=== PATIENT | male | born 1950 | race African-American/Black ===

== ENCOUNTER 2019-01-12 09:41 | Inpatient (IN) | payer OTHER ==
[~2019-01-12] VITALS: Ht 185.4 cm; Wt 102.1 kg
[2019-01-12] VITALS (7 sets, daily range): BP systolic 128–140; BP diastolic 56–86
[2019-01-12] MEDS ORDERED: Magnesium 1GM/D5W 100ML PREMIX PIGGYBACK IV ONE ×2 (09:42→19:39)
[2019-01-12] MEDS ORDERED: MIDAZOLAM HCL 2 MG/2ML VIAL ONE (10:42)
[2019-01-12] MEDS ORDERED: HEPARIN SODIUM, PORCINE 5000 UNITS/1 ML VIAL ONE (11:23)
[2019-01-12] MEDS ORDERED: HEMOSTATIC MATRIX 10 ML 1 EACH PAD MC ONE (11:23)
[2019-01-12] MEDS ORDERED: CEFAZOLIN 1 GM ONE (11:23)
[2019-01-12] MEDS ORDERED: THROMBIN (BOVINE) 5,000 UNITS VIAL TP ONE (11:23)
[2019-01-12] MEDS ORDERED: GELATIN SPONGE,ABSORBABLE 1 EA SPONGE TP ONE (11:24)
[2019-01-12] MEDS ORDERED: PROPOFOL 100 ML ONE (11:44)
[2019-01-12] MEDS ORDERED: SUCCINYLCHOLINE CHLORIDE 20 MG/ML VIAL ONE (11:44)
[2019-01-12] MEDS ORDERED: ESMOLOL INJ 100 MG/10 ML VIAL IV ONE ×2 (12:42→12:44)
[2019-01-12] MEDS ORDERED: HYDROMORPHONE 1 MG/1 ML DISP.SYRIN ONE (14:34)
[2019-01-12] MEDS ORDERED: FENTANYL PF 100MCG/2ML AMPUL ONE (14:47)
[2019-01-12] MEDS ORDERED: ACETAMINOPHEN 325 MG TABLET PO PRN ×2 (15:00→17:00)
[2019-01-12] MEDS ORDERED: DOCUSATE SODIUM 100 MG CAPSULE PO PRN (15:00)
[2019-01-12] MEDS ORDERED: HYDROCODONE/APAP 5/325MG 1 EACH TABLET PO PRN (16:00)
--- NOTE | 2019-01-12 16:00 | NUR ---
GOVERNMENT PROPERTY INSPECTOR ADMITTING NOTES: Rec'd pt from [facility] [place]. Pt transferred via bed accompanied by . Pt admitted to rm 103, s/p cervical sx by Dr. Miller. Pt noted to have clean, dry & intact dressing w/ Hemovac drain - + sanguineous output. Has L wrist G22, SL flushing well w/ no s/sx of infection/infiltration noted. Pt oriented to room. Safety precaution kept in place w/ bed in lowest & locked pos. Call light placed w/in reach. Notified Dr. Tirado re: admitting the pt, MD to see pt. Clarified w/ Benson [facility] [place] (spoke w/ Alee) re: cervical brace, per RNs, per MD to wear cervical brace at all times while on bed. Carried out orders of Dr. Espinosa re: FIELD MARKETER Dilaudid. Faxed order to pharmacy, confirmed w/ Celestino. Pt seen & examined by Dr. Tirado w/ orders made & carried out. Per , to give Dilaudid 1mg IVP x 1 prior to starting Dilaudid FIELD MARKETER pump. Clarified w/ Dr. Espinosa re: FIELD MARKETER Dilaudid infusion (total dose in 4 hr = 8mg) Pt & VS monitored closely for any changes. Will endorse to PM RN for ANUSHA.
[2019-01-12] MEDS ORDERED: NALOXONE HCL 0.4 MG/ML AMPUL IV PRN (16:30)
[2019-01-12] MEDS ORDERED: HYDROMORPHONE 1 MG/1 ML DISP.SYRIN IV ONE (16:30)
[2019-01-12] MEDS ORDERED: KEY,NONCONTROL,TO KEEP IN PYXI 1 EA MC ONE (16:47)
[2019-01-12] MEDS: DEXAMETHASONE SOD PHOSPHATE 4 MG/ML VIAL IV SCH (16:49)
[2019-01-12] MEDS: METHOCARBAMOL (750MG) 750 MG TABLET PO SCH (16:49)
[2019-01-12] MEDS ORDERED: MAGNESIUM HYDROXIDE 30 ML UDC PO PRN (17:00)
[2019-01-12] MEDS ORDERED: MAG HYDROX/AL HYDROX/SIMETH 30 ML UDC PO PRN (17:00)
[2019-01-12] MEDS ORDERED: ONDANSETRON HCL/PF 4 MG/2 ML VIAL IVP PRN (17:00)
[2019-01-12] MEDS ORDERED: Z GUARD REMEDY 2 OZ OINT TP PRN (17:00)
[2019-01-12] MEDS: HYDROMORPHONE MDV 30 MG in IV NS 0.9% 15 ML, PCA TOTAL VOLUME 1 BAG IV PRN ×3 (17:28)
--- NOTE | 2019-01-12 19:25 | NUR ---
HAND WASHER NOTE PATIENT REPORT BEDSIDE. PATIENT IN BED A/O X4. PATIENT ON DILAUDID SONG WRITER. 28.9 ML. PATIENT REPORTED TO PUSH SONG WRITER PUMP ONE TIME, MACHINE CONFIRMS USE OF 1 PUSH. DAY SHIFT RECORD CLEARED AND DOCUMENTED BY DAYSHIFT WITH SMUTTER ELSE WITNESS. PATIENT ABLE TO VERBALIZE UNDERSTANDING OF USE OF PUMP. PATIENT C/O OF PAIN /10. PATIENT INSTRUCTED ON USE OF INCENTIVE SPIROMETER. PATIENT STATES IS HURTS TO USE, RN INSTRUCTED TO USE IT AFTER PUSHING SONG WRITER TO EASE PAIN. PATIENT DENIES SOB O2 SATURATION 95%. PATIENT HAS HEMOVAC WITH SANGUINOUS DRAINAGE. C COLLAR IN PLACE. IV PATENT AND INTACT NO S/S OF INFECTION OR INFILTRATION. PATIENT DRINKING SOUP NO S/S OF DYSPHAGIA. RN WILL CONTINUE TO MONITOR FOR CHANGES. SAFETY PRECAUTIONS IN PLACE. CALL LIGHT IN HAND.
[2019-01-12] MEDS: CEFAZOLIN 2 GM in IV D5W 100 ML IV SCH (19:38)
[2019-01-12] MEDS: HYDROCODONE/APAP 10/325MG 1 EA TABLET PO PRN (21:10)
--- NOTE | 2019-01-12 21:13 | NUR ---
DOCTOR OF PODIATRY NOTE PATIENT HAVING BREAKTHROUGH PAIN. NORCO 10/325 GIVEN PER MD ORDER. WILL EVALUATE EFFECTIVE AND DETERMINE IF STUDENT DEVELOPMENT SPECIALIST NEEDS TO BE TITRATED UP 0.2 MG PER MD ORDER
[2019-01-12] MEDS ORDERED: ZOLPIDEM TARTRATE 5 MG TABLET PO PRN (22:00)
--- NOTE | 2019-01-12 22:31 | NUR ---
NUCLEAR POWERPLANT SUPERVISOR NOTE PATIENT C/O BURNING SORE THROAT NO FEVER NOTED. PATIENT ASKING FOR MEDICATION TO MANAGE SYMPTOM. MD WILEY OFFICE CALLED NO ANSWER, MESSAGE LEFT. OFFERED PATIENT WARM WATER OR TEA PATIENT REFUSED. EXPLAINED TO PATIENT, PAIN MAY BE RELATED TO INTUBATION DURING SURGERY.
[2019-01-13] VITALS: BP 106/69
[2019-01-13] MEDS: DEXAMETHASONE SOD PHOSPHATE 4 MG/ML VIAL IV SCH ×2 (01:09→08:11)
[2019-01-13] MEDS: METHOCARBAMOL (750MG) 750 MG TABLET PO SCH ×4 (01:09→23:15)
[2019-01-13] MEDS: CEFAZOLIN 2 GM in IV D5W 100 ML IV SCH ×3 (03:47→20:23)
[2019-01-13 04:00] VITALS: BP 110/60
--- NOTE | 2019-01-13 05:00 | NUR ---
SALES AND PRODUCTION MANAGER NOTE DRESSING OVER HEMOVAC BLOODY. DRESSING CHANGED WITH MINOR PRESSURE. NO BLOODY BREAKTHROUGH NOTED. CALL SURGEON VIRGILIO, NO ANSWER LEFT MESSAGE WITH ONCALL.. PATIENT V/S 110/60 HR 88. PATIENT SKIN WARM AND DRY, PATIENT MENTATION NORMAL. RN WILL CONTINUE TO MONITOR. CHARGE NURSE ANAM ZAVALA.
[2019-01-13 06:38] LABS: BASOPHILS % (AUTO) 0.1 % (0.0-2.0); HEMATOCRIT 48 % (39-51); HEMOGLOBIN 16.2 g/dL (13.5-17.5); LYMPHOCYTES # (AUTO) 1.2 /CMM (0.8-4.8); LYMPHOCYTES % (AUTO) 10.2 % (20.0-44.0); MEAN CORPUSCULAR HGB CONC 34 g/dl (31.0-36.0); MEAN CORPUSCULAR VOLUME 93 fL (80-96); MONOCYTES # (AUTO) 0.3 /CMM (0.1-1.30); MONOCYTES % (AUTO) 2.6 % (2.0-12.0); NEUTROPHILS # (AUTO) 9.9 /CMM (1.8-8.9); NEUTROPHILS % (AUTO) 87.1 % (43.0-81.0); PLATELET COUNT (AUTO) 160 /CMM (150-450); RED BLOOD CELL COUNT(AUTO) 5.16 MIL/uL (4.5-6.0); WHITE BLOOD COUNT (AUTO) 11.4 K/uL (4.3-11.0)
[2019-01-13 07:00] LABS: CALCIUM, SERUM 8.5 mg/dL (8.5-10.1); CREATININE 1.1 mg/dL (0.6-1.3); MAGNESIUM 2.2 mg/dL (1.8-2.4); PHOSPHORUS 3.4 mg/dL (2.5-4.9)
[2019-01-13 08:00] VITALS: BP 133/82
[2019-01-13] MEDS: HYDROCODONE/APAP 10/325MG 1 EA TABLET PO PRN (08:11)
[2019-01-13] MEDS ORDERED: ATOR40TA PO (09:27)
[2019-01-13] MEDS ORDERED: DUTA0.5C15 PO (09:27)
[2019-01-13] MEDS ORDERED: LOSA25TA27 PO (09:27)
[2019-01-13] MEDS ORDERED: TAMS-12 PO (09:27)
[2019-01-13] MEDS ORDERED: TRAM50TA2 PO (09:27)
[2019-01-13] MEDS ORDERED: HYDR-3980 PO (09:27)
--- NOTE | 2019-01-13 09:40 | NUR ---
RN NOTE 0715: Received patient A/Ox4. Tolerated room air. On BOSS DYER pump Dilaudid at 0.7mg bolus and BOSS DYER. With c/o 10/18 nexk pain. On C-collar. PIV intact. 0840: Modale given as ordered for breakthrough pain and per patient request. 10/18 neck pain, will continue. 0935: No any significant changes noted at this time. Will continue to monitor. Patient requested to change diet to pureed for now, made MD aware.
[2019-01-13 12:00] VITALS: BP 109/72
--- NOTE | 2019-01-13 14:28 | NUR ---
RN NOTE 1100: S/E by Dr. Heath, said he will be satying and will check again tomorrow. Continue SENIOR EDITOR per MD. 1420: Drained drainage and noted 8mL sanguineous, made MD aware.
[2019-01-13] MEDS: MENTHOL/CETYLPYRD (CEPACOL) 1 LOZ LOZENGE PO PRN ×3 (15:39→23:22)
[2019-01-13 16:00] VITALS: BP 115/68
[2019-01-13] MEDS ORDERED: KEY,NONCONTROL,TO KEEP IN PYXI 1 EA MC ONE (16:01)
[2019-01-13] MEDS: HYDROMORPHONE MDV 30 MG in IV NS 0.9% 15 ML, PCA TOTAL VOLUME 1 BAG IV PRN ×3 (16:25)
--- NOTE | 2019-01-13 18:08 | NUR ---
RN NOTE A/Ox4, no significant changes. On 0.5mg Dilaudid Continuous, titrated lower in am, tolerating pain, 5-7/10 neck pain. Noted with minimal amount of blood on the drainage site. Sanguineous drainage noted on the drainage. Patient requesting room transfer, CN aware, will place to 110 after dinner but patient changed his mind, made CN aware. Informed patient, room will be available still if he changes his mind. Will endorse to next shift.
--- NOTE | 2019-01-13 19:01 | NUR ---
RN OPENING NOTES RECEIVED PATIENT RESTING IN BED, AWAKE, A/OX4, ABLE TO MAKE NEEDS KNOWN. ON 0.5MG DILAUDID SEXER, TOLERATING PAIN, 6/10 NECK PAIN NOTED. MINIMAL AMOUNT OF BLOOD ON THE DRAINAGE SITE, SANGUINEOUS DRAINAGE NOTED. ON ROOM AIR, TOLERATING WELL, NO RESPIRATORY OR CARDIAC DISTRESS NOTED, BREATHING EVEN AND UNLABORED. IV SITE LEFT WRIST #22, FLUSHING AND PATENT, IV ATB RUNNING ORDERED, NO INFILTRATION NOTED. SAFETY MEASURES IN PLACE; BED LOCKED AND IN LOWEST POSITION, SIDE RAILS UP X2, CALL LIGHT WITHIN REACH, HOB ELEVATED. WILL CONT TO MONITOR PT.
[2019-01-13 20:00] VITALS: BP 116/76
[2019-01-14 04:00] VITALS: BP 119/69
[2019-01-14] MEDS: CEFAZOLIN 2 GM in IV D5W 100 ML IV SCH ×2 (04:16→11:26)
[2019-01-14 06:33] LABS: BASOPHILS % (AUTO) 0.2 % (0.0-2.0); EOSINOPHILS % (AUTO) 0.6 % (0.0-6.0); HEMATOCRIT 44 % (39-51); HEMOGLOBIN 14.9 g/dL (13.5-17.5); LYMPHOCYTES # (AUTO) 2.2 /CMM (0.8-4.8); LYMPHOCYTES % (AUTO) 21.6 % (20.0-44.0); MEAN CORPUSCULAR HGB CONC 34 g/dl (31.0-36.0); MEAN CORPUSCULAR VOLUME 93 fL (80-96); MONOCYTES # (AUTO) 0.9 /CMM (0.1-1.30); MONOCYTES % (AUTO) 9.1 % (2.0-12.0); NEUTROPHILS # (AUTO) 6.9 /CMM (1.8-8.9); NEUTROPHILS % (AUTO) 68.5 % (43.0-81.0); PLATELET COUNT (AUTO) 154 /CMM (150-450); RED BLOOD CELL COUNT(AUTO) 4.75 MIL/uL (4.5-6.0)
[2019-01-14] MEDS: HYDROCODONE/APAP 10/325MG 1 EA TABLET PO PRN (06:38)
[2019-01-14 07:00] LABS: CALCIUM, SERUM 9.2 mg/dL (8.5-10.1); CREATININE 1.1 mg/dL (0.6-1.3); MAGNESIUM 1.9 mg/dL (1.8-2.4); PHOSPHORUS 3.3 mg/dL (2.5-4.9)
--- NOTE | 2019-01-14 07:25 | NUR ---
RN CLOSING NOTES PATIENT RESTING IN BED, AWAKE, A/OX4, ABLE TO MAKE NEEDS KNOWN. ON 0.5MG DILAUDID RECOVERER, TOLERATING PAIN, 6/10 NECK PAIN NOTED. MINIMAL AMOUNT OF BLOOD ON THE DRAINAGE SITE, SANGUINEOUS DRAINAGE NOTED. ON ROOM AIR, TOLERATING WELL, NO RESPIRATORY OR CARDIAC DISTRESS NOTED, BREATHING EVEN AND UNLABORED. IV SITE LEFT WRIST #22, FLUSHING AND PATENT, IV ATB RUNNING ORDERED, NO INFILTRATION NOTED. SAFETY MEASURES IN PLACE; BED LOCKED AND IN LOWEST POSITION, SIDE RAILS UP X2, CALL LIGHT WITHIN REACH, HOB ELEVATED. ALL MD ORDERS ATTENDED. ENDORSED TO AM RN FOR ANUSHA.
--- NOTE | 2019-01-14 07:57 | NUR ---
MS KYLE NOTES PATIENT RESTING IN BED, AWAKE, A/OX4, ABLE TO MAKE NEEDS KNOWN. ON 0.5MG DILAUDID CONTROL ROOM TECHNICIAN, ORDERED TOLERATING PAIN, DRESSING ON NECK WITH MINIMAL AMOUNT OF BLOOD ON THE DRAINAGE SITE, SANGUINEOUS DRAINAGE NOTED. ON ROOM AIR, TOLERATING WELL, NO RESPIRATORY OR CARDIAC DISTRESS NOTED, BREATHING EVEN AND UNLABORED. IV SITE LEFT WRIST #22, FLUSHING AND PATENT, , NO INFILTRATION NOTED. SAFETY MEASURES IN PLACE; BED LOCKED AND IN LOWEST POSITION, SIDE RAILS UP X2, CALL LIGHT WITHIN REACH, HOB ELEVATED. ATTENDED. ABLE TO URINATE WELL USING A URINAL, WILL CONT TO MONITOR Addendum: 01/14/19 at 0820 by HANNAH PAREKH RN C\O CORE THROAT CEPACOL GIVEN ORDERED
[2019-01-14 08:00] VITALS: BP 132/79
[2019-01-14] MEDS: METHOCARBAMOL (750MG) 750 MG TABLET PO SCH (08:03)
[2019-01-14] MEDS: MENTHOL/CETYLPYRD (CEPACOL) 1 LOZ LOZENGE PO PRN (08:12)
[2019-01-14 08:18] VITALS: BP 132/79
--- NOTE | 2019-01-14 09:30 | NUR ---
MS RN NOTE SEEN BY KUSUM WILKERSON DNP OK TO DISCHARGE HOME, SEEN PATIENT OK TO CHANGE DRESSING AWARE THAT WAS BLEEDING BEFORE ALSO HEMOVAC REMOVED BY HIM
[2019-01-14] MEDS ORDERED: BACITRACIN ZINC OINT PACKET 1 EA PACKET TP SCH (12:00)
[2019-01-14] MEDS ORDERED: KEY,NONCONTROL,TO KEEP IN PYXI 1 EA MC ONE (13:45)
--- NOTE | 2019-01-14 14:02 | NUR ---
CORN MILLER NOTE DISCHARGE INSTRUCTION DONE , PX GIVEN EMPLANED HOW TO TAKE NEW AND HOME MEDS ORDERED, AND POSSIBLE SIDE EFFECTS, INSTRUCTED TO F]U WITH PRIMARY CARE DOCTOR AND DR WILEY ,KEEP NECK COLLAR TILL SEE DR WILEY , NO BELONGING AT THIS TIME, AT BEDSIDE, WENT TO LOBBY BY WALKING WITH STABLE CONDITION , HL IN LT WRIST REMOVED, NO BLEEDING NOTED PRESSURE DRESSING APPLIED
== END 2019-01-14 13:45 | disposition home or self-care (01) | DRG 472 ==
LOC: DS 09:41 → MEDSG1 15:43 → TELE1 18:13 → MEDSG1 01-13 09:51
PROVIDERS: ADMIT Nurse Practitioner Acute Care; ATTEND Nurse Practitioner Acute Care
DX: M50.123 Cervical disc disorder at C6-C7 level with radiculopathy (principal); J98.11 Atelectasis; M48.02 Spinal stenosis, cervical region; Z96.653 Presence of artificial knee joint, bilateral; Z79.891 Long term (current) use of opiate analgesic; N40.0 Benign prostatic hyperplasia without lower urinary tract symptoms; I10 Essential (primary) hypertension; G89.4 Chronic pain syndrome; Z98.1 Arthrodesis status; Z90.49 Acquired absence of other specified parts of digestive tract; M89.9 Disorder of bone, unspecified; M47.22 Other spondylosis with radiculopathy, cervical region; G96.12 Meningeal adhesions (cerebral) (spinal)
CPT/HCPCS: 36415; 71045-TC; 72040-TC; 80048-TC; 80061-TC; 83735-TC; 84100-TC; 85025-TC; 86850-TC; 86921-TC; 87081-TC; 88304-TC; 88311-TC; 97116-TC; 97530-TC; A4216; A4565; A6403; G0378; J0330; J0690; J1100; J1170; J1644; J2250; J2405; J2704; J3010; J3475; J3490; J7050; J7060